=== PATIENT | female | born 2000 | race Caucasian/White ===

== ENCOUNTER 2018-11-29 01:01 | Emergency (ER) | payer OTHER ==
[2018-11-29] MEDS ORDERED: NA CHLORIDE 0.9% 1,000 ML ONE (01:50)
[2018-11-29] MEDS ORDERED: KETOROLAC 30 MG/ML INJ ONE (01:50)
[2018-11-29 03:04] LABS: Absolute Lymphocytes (CBC) 2.4 K/uL (0.7-4.9); Basophils % 0.9 % (0-1.3); Hematocrit 40.5 % (36.0-45.0); Lymphocytes % 22.7 % (15.3-44.8); MPV 11.6 fL (7.6-11.3); RBC Red Blood Cell Count 4.24 M/uL (3.86-4.86)
[2018-11-29 03:23] LABS: Albumin 4.3 g/dL (3.4-5.0); Bilirubin Direct 0.2 mg/dL (0-0.2); Bilirubin Total 0.6 mg/dL (0.2-1.0); Potassium 4.1 mmol/L (3.5-5.1)
[2018-11-29 03:42] LABS: Urine Blood 2+ (NEG); Urine Glucose NEGATIVE (NEG); Urine Protein 1+ (NEG); Urine Specific Gravity 1.015 (1.005-1.030)
--- NOTE | 2018-11-29 03:47 | EDPHYS ---
Physician Documentation [facility] Name: Gloria Stratton Age: 18 yrs Sex: Female : 2000 Arrival Date: 11/29/2018 Time: 01:05 Bed 13 Private MD: SINCERE Physician Ovidio Louie HPI: 11/29 01:46 This 18 yrs old Female presents to ER via Ambulatory with complaints of Back cp Pain. 01:46 The patient presents with pain that is acute, with no known mechanism of injury. The cp symptoms are located in the right mid back and right low back. Onset: The symptoms/episode began/occurred yesterday. The pain radiates to the abdomen. Associated signs and symptoms: Pertinent negatives: chest pain, constipation, dysuria, fever, headache, incontinence, numbness, urinary retention, weakness. The problem was sustained possible UTI. 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 - Social history:: Smoking status: Patient uses tobacco products, vapes. - Ebola Screening: : No symptoms or risks identified at this time. ROS: 01:50 Constitutional: Negative for body aches, chills, fever, poor PO intake. cp 01:50 Eyes: Negative for injury, pain, redness, and discharge. cp 01:50 ENT: Negative for drainage from ear(s), ear pain, sore throat, difficulty swallowing, difficulty handling secretions. 01:50 Cardiovascular: Negative for chest pain, edema, palpitations. 01:50 Respiratory: Negative for cough, shortness of breath, wheezing. 01:50 Abdomen/GI: Positive for abdominal pain, Negative for vomiting, diarrhea, constipation, anorexia, black/tarry stool, rectal bleeding. 01:50 Back: Positive for pain at rest, pain with movement, of the right mid back and right low back, Negative for injury or acute deformity, decreased range of motion. 01:50 : Negative for burning with urination, difficulty urinating, vaginal bleeding, vaginal discharge. 01:50 Skin: Negative for rash. 01:50 Neuro: Negative for altered mental status, headache, weakness. 01:50 All other systems are negative. Exam: 01:55 Constitutional: The patient appears in no acute distress, alert, awake, non-toxic, well cp developed, well nourished. 01:55 Head/Face: Normocephalic, atraumatic. cp 01:55 Eyes: Periorbital structures: appear normal, Conjunctiva: normal, no exudate, no injection, Sclera: no appreciated abnormality, Lids and lashes: appear normal, bilaterally. 01:55 ENT: External ear(s): are unremarkable, Nose: is normal, Mouth: Lips: moist, Oral mucosa: pink and intact, moist, Posterior pharynx: is normal, airway is patent, no erythema, no exudate. 01:55 Chest/axilla: Inspection: normal, Palpation: is normal, no crepitus, no tenderness. 01:55 Cardiovascular: Rate: tachycardic, Rhythm: regular. 01:55 Respiratory: the patient does not display signs of respiratory distress, Respirations: normal, no use of accessory muscles, no retractions, no splinting, no tachypnea, labored breathing, is not present, Breath sounds: are clear throughout, no decreased breath sounds, no stridor, no wheezing. 01:55 Abdomen/GI: Inspection: abdomen appears normal, Bowel sounds: active, all quadrants, Palpation: soft, in all quadrants, mild abdominal tenderness, in the right upper quadrant and right lower quadrant, rebound tenderness, is not appreciated, involuntary guarding, is not appreciated. 01:55 Back: pain, that is moderate, of the right mid back and right low back, ROM is painful, Straight leg raises: of both lower extremities does not illicit pain. 01:55 Neuro: Orientation: to person, place \T\ time. Mentation: is normal, Motor: moves all fours, strength is normal, Sensation: no obvious gross deficits. Vital Signs: 01:09 BP 108 / 96; Pulse 100; Resp 16; Temp 98.7(TE); Pulse Ox 99% on R/A; Weight 61.69 kg ak1 (R); Height 5 ft. 6 in. (167.64 cm) (R); Pain 7/10; 03:15 BP 100 / 71; Pulse 94; Resp 18; Pulse Ox 100% ; Pain 0/10; fu 01:09 Body Mass Index 21.95 (61.69 kg, 167.64 cm) ak1 MDM: 01:43 Patient medically screened. josie 02:00 Differential diagnosis: Cholelithiasis Pyelonephritis spinal injury, Ureterolithiasis cp ovarian cyst, PID, sciatica. 03:45 Data reviewed: vital signs, nurses notes, lab test result(s), radiologic studies, CT cp scan, and as a result, I will discharge patient. 03:45 Counseling: I had a detailed discussion with the patient and/or guardian regarding: the cp historical points, exam findings, and any diagnostic results supporting the discharge/admit diagnosis, lab results, radiology results, to return to the emergency department if symptoms worsen or persist or if there are any questions or concerns that arise at home. Response to treatment: the patient's symptoms have markedly improved after treatment, and as a result, I will discharge patient. 11/29 01:22 Order name: Urine Dipstick--Ancillary (enter results); Complete Time: 14:40 cm6 11/29 01:22 Order name: Urine --Ancillary (enter results); Complete Time: 14:40 cm6 11/29 01:41 Order name: Urine Microscopic Only; Complete Time: 14:40 cp 11/29 14:40 Interpretation: Normal except: UWBC 20-50; URBC 10-20; UBACT 20-50. cp 11/29 01:46 Order name: Basic Metabolic Panel; Complete Time: 03:33 cp 11/29 03:33 Interpretation: Normal except: CL 108; GFR 83. cp 11/29 01:46 Order name: CBC with Diff; Complete Time: 03:05 cp 11/29 03:05 Interpretation: Normal except: MPV 11.6. cp 11/29 01:46 Order name: Creatinine for Radiology; Complete Time: 03:22 cp 11/29 03:23 Interpretation: Reviewed. cp 11/29 01:46 Order name: Hepatic Function; Complete Time: 03:33 cp 11/29 01:46 Order name: Lipase; Complete Time: 03:33 cp 11/29 01:46 Order name: IV Saline Lock; Complete Time: 02:55 cp 11/29 01:46 Order name: CT Stone Protocol 11/29 04:05 Order name: Urine Culture EDWI 11/29 01:46 Order name: Labs collected and sent; Complete Time: 02:55 cp Administered Medications: 02:50 Drug: TORadol - Ketorolac 15 mg Route: IVP; Site: left antecubital; fu 03:37 Follow up: Response: Pain is decreased fu 02:50 Drug: NS 0.9% 1000 ml Route: IV; Rate: 1 bolus; Site: left antecubital; fu 04:04 Drug: Rocephin 1 grams Route: IV; Rate: bolus; Site: left antecubital; fu Disposition: 06:17 Co-signature as Attending Physician, Ovidio Louie MD I agree with the assessment and [facility] plan of care. Disposition: 11/29/18 03:46 Discharged to Home. Impression: Urinary tract infection, site not specified, Low back pain - right lower back. - Condition is Stable. - Discharge Instructions: Back Pain, Adult, Urinary Tract Infection, Adult. - Prescriptions for Ibuprofen 800 mg Oral Tablet - take 1 tablet by ORAL route every 8 hours As needed take with food; 30 tablet. Zofran 4 mg Oral Tablet - take 1 tablet by ORAL route every 12 hours As needed; 20 tablet. Bactrim DS 800- 160 mg Oral Tablet - take 1 tablet by ORAL route every 12 hours for 7 days; 14 tablet. - Medication Reconciliation Form, Thank You Letter, Antibiotic Education, Prescription Opioid Use form. - Follow up: Private Physician; When: 2 - 3 days; Reason: Recheck today's complaints. - Problem is new. - Symptoms have improved. Signatures: Dispatcher [employer] [facility] Ovidio Louie MD MD cha Krenek, Amber RN RN ak1 Ovidio Ro PA PA cp Umadhay, Felix, RN RN fu Corrections: (The following items were deleted from the chart) 04:31 03:46 11/29/2018 03:46 Discharged to Home. Impression: Urinary tract infection, site fu not specified; Low back pain - right lower back. Condition is Stable. Forms are Medication Reconciliation Form, Thank You Letter, Antibiotic Education, Prescription Opioid Use. Follow up: Private Physician; When: 2 - 3 days; Reason: Recheck today's complaints. Problem is new. Symptoms have improved. cp
--- NOTE | 2018-11-29 03:47 | ER ---
Nurse's Notes [facility] Name: Gloria Strattno Age: 18 yrs Sex: Female : 2000 Arrival Date: 11/29/2018 Time: 01:05 Bed 13 Private MD: Diagnosis: Urinary tract infection, site not specified;Low back pain-right lower back Presentation: 11/29 01:10 Presenting complaint: Patient states: right flank pain since 0. pt with UTI s/s X3 ak1 weeks, taking OTC AZO. Transition of care: patient was not received from another setting of care. Onset of symptoms is unknown. Risk Assessment: Do you want to hurt yourself or someone else? Patient reports no desire to harm self or others. Initial Sepsis Screen: Does the patient meet any 2 criteria? No. Patient's initial sepsis screen is negative. Does the patient have a suspected source of infection? No. Patient's initial sepsis screen is negative. Care prior to arrival: None. 01:10 Method Of Arrival: Ambulatory ak1 01:10 Acuity: ALBERT 3 ak1 Triage Assessment: 01:11 General: Appears uncomfortable, Behavior is calm, cooperative. Pain: Complains of pain ak1 in right mid back and right low back. 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 - Social history:: Smoking status: Patient uses tobacco products, vapes. - Ebola Screening: : No symptoms or risks identified at this time. Screenin:28 Abuse screen: Denies threats or abuse. Nutritional screening: No deficits noted. fu Tuberculosis screening: No symptoms or risk factors identified. Fall Risk None identified. Assessment: 01:24 General: Appears in no apparent distress. Behavior is calm, cooperative, appropriate fu for age, Denies fever, feeling ill, fatigue, chills. Pain: Complains of pain in back and right low back and right mid back Pain does not radiate. Pain currently is 7 out of 10 on a pain scale. Pain began 0300 Is intermittent. Neuro: Level of Consciousness is awake, alert, obeys commands, Oriented to person, place, time, situation. Cardiovascular: Denies chest pain. Respiratory: Airway is patent Breath sounds are clear bilaterally. : Reports pressure with urination. EENT:. Musculoskeletal: No signs and/or symptoms reported regarding the musculoskeletal system. 02:00 Reassessment: Patient appears in no apparent distress at this time. No changes from fu previously documented assessment. Patient and/or family updated on plan of care and expected duration. Pain level reassessed. 03:00 Reassessment: Patient appears in no apparent distress at this time. Patient and/or fu family updated on plan of care and expected duration. Pain level reassessed. Patient reports feeling cold and chills, warm blanket provided. 04:10 Reassessment: Patient appears in no apparent distress at this time. No changes from fu previously documented assessment. Patient and/or family updated on plan of care and expected duration. Pain level reassessed. Patient denies pain at this time. Patient states feeling better. Vital Signs: 01:09 BP 108 / 96; Pulse 100; Resp 16; Temp 98.7(TE); Pulse Ox 99% on R/A; Weight 61.69 kg ak1 (R); Height 5 ft. 6 in. (167.64 cm) (R); Pain 7/10; 03:15 BP 100 / 71; Pulse 94; Resp 18; Pulse Ox 100% ; Pain 0/10; fu 01:09 Body Mass Index 21.95 (61.69 kg, 167.64 cm) ak1 ED Course: 01:05 Patient arrived in ED. es 01:09 Arm band placed on Patient placed in an exam room, on a stretcher, Patient notified of ak1 wait time. 01:11 Triage completed. ak1 01:11 Fabien Miarmontes, JOSE is Primary Nurse. fu 01:41 Ovidio Ro PA is PHCP. cp 01:41 Ovidio Louie MD is Attending Physician. cp 02:20 CT Stone Protocol In Process Unspecified. EDMS 02:46 Inserted saline lock: 20 gauge in left antecubital area, using aseptic technique. oe 02:47 Inserted saline lock: 20 gauge in left antecubital area, using aseptic technique. Blood oe collected. 03:17 Patient has correct armband on for positive identification. Placed in gown. Bed in low fu position. Side rails up X 1. 03:17 No provider procedures requiring assistance completed. fu 03:40 warm blanket, provided. fu 04:10 IV discontinued, bleeding controlled, Pressure dressing applied. fu Administered Medications: 02:50 Drug: TORadol - Ketorolac 15 mg Route: IVP; Site: left antecubital; fu 03:37 Follow up: Response: Pain is decreased fu 02:50 Drug: NS 0.9% 1000 ml Route: IV; Rate: 1 bolus; Site: left antecubital; fu 04:04 Drug: Rocephin 1 grams Route: IV; Rate: bolus; Site: left antecubital; fu Outcome: 03:46 Discharge ordered by . cp 04:15 Discharged to home ambulatory. fu 04:15 Condition: improved 04:15 Discharge instructions given to patient, Instructed on discharge instructions, Demonstrated understanding of instructions, Prescriptions given X 3. 04:31 Patient left the ED. fu Signatures: Dispatcher [employer] EDClaudia Delatorre Amber RN RN ak1 Ovidio Ro PA PA Rashad Meyers Felix, JOSE RN fu Corrections: (The following items were deleted from the chart) 03:41 01:19 Fabien Miramontes, JOSE is Primary Nurse. fu fu
[2018-11-29] MEDS ORDERED: CEFTRIAXONE/SWI 1gm 1 GM/10 ML SYR ONE (03:58)
[2018-11-29 04:04] LABS: Urine Bacteria 20-50 /HPF (<20); Urine Culture Reflex Order REFLEXED
[2018-11-29 04:37] VITALS: TEMP 98.7
[2018-11-29 04:38] VITALS: BP 100/71; O2SAT 100
--- NOTE | 2018-11-29 09:50 | RAD REPORT ---
EXAM DESCRIPTION: CT - Stone Protocol - 11/29/2018 2:49 am COMPARISON: None CLINICAL HISTORY: Right lower back pain, right flank pain TECHNIQUE: Multiple helical axial images were obtained through the abdomen and pelvis without intrav enous contrast. Sagittal and coronal reformatted images are reviewed as well. All CT scans at this facility use dose modulation, iterative reconstruction, and/or weight-based dosi ng when appropriate to reduce radiation dose to as low as reasonably achievable. FINDINGS: Lung bases: Unremarkable. Liver: Homogenous attenuation is demonstrated. Gallbladder/biliary: Gallbladder appears unremarkable. No calcified gallstones. No evidence of biliar y ductal dilatation. Pancreas: Unremarkable. Spleen: Unremarkable. Adrenals: Unremarkable. Kidneys and ureters: No evidence of renal or ureteral stones. No hydronephrosis. Bladder: Unremarkable. Pelvic organs: Unremarkable. Bowel: No evidence of bowel obstruction. No bowel wall thickening. Appendix appears unremarkable. Peritoneum: No free air. No significant free fluid. Lymph nodes: Unremarkable. Vasculature: Unremarkable. Soft tissues: Unremarkable. Bones: Unremarkable. IMPRESSION: No evidence for an acute process within the abdomen or pelvis. Electronically signed by: Morales Bolanos MD 11/29/2018 2:41 AM CDT Due to temporary technical issues with the PACS/Fluency reporting system, reports are being signed by the in house radiologist as a courtesy to ensure prompt reporting. The interpreting radiologist is f ully responsible for the content of the report.
== END 2018-11-29 04:31 | disposition home or self-care (01) ==
LOC: ER 01:01
DX: N39.0 Urinary tract infection, site not specified (principal); F17.290 Nicotine dependence, other tobacco product, uncomplicated
CPT/HCPCS: 87088; 85025; 87086; 80048; 36415; 81025; 80076; 83690; 76377; 74176; J0696; J7030; 81003; 81015; 96374; 96375; 99284

== ENCOUNTER 2020-01-19 22:38 | Emergency (ER) | payer OTHER ==
--- OUTSIDE RECORDS SUMMARY | 2020-01-19 22:41 | XMS REPORT | Continuity of Care Document ---
:2000 Author Organization [facility] t Address [address] [place] [address] Care Team Providers Name Role Phone Unavailable Unavailable Unavailable Payers Payer Name Policy Type Policy Number Effective Date Expiration Date S ource Problems Condition Condition Condition Status Onset Resolution Last Treating Co mments Source Name Details Category Date Date Treatment Clinician Date Viral URI Viral URI Problem Active [facility] Allergies, Adverse Reactions, Alerts Allergy Allergy Status Severity Reaction(s) Onset Inactive Treating Comm ents Source Name Type Date Date Clinician No Known DA Active [facility] Medications Ordered Filled Start Stop Current Ordering Indication Dosage Frequency Signature Comments Components Source Medication Medication Date Date Medication? Clinician (SIG) Name Name Sprintec 28 Sprintec 28 Yes Sia not [facility] defined [facility] Procedures This patient has no known procedures. Encounters Start End Encounter Admission Attending Care Care Encounter Source Date/Time Date/Time Type Type Clinicians Facility Department ID 2019-01-27 2019-01-27 [facility] [id number] 15:40:00 15:40:00 t [facility] - [facility] Results Test Description Test Time Test Comments Results Result Sour e Comments PRODUCTS OF 2019-10-11 CONCEPTION 19:13:00 --------RUN DATE: 10/12/19 [facility] PAGE 1 RUN TIME: 1038 Specimen Inquiry RUN USER: INTERFACE --------PATIENT: [facility]AY[facility]AL[facility] #: [id number] AGE/SX: 19/F ROOM: RE10/04/19REG DR: Chuck Valladares MD : [birth year] BED: DIS: STATUS: [facility] TLOC: -------- SPEC #: [id number] RECD: 10/04/19 STATUS: MEME SULLIVAN #: [id number] ROD: 10/04/19- SUBM DR: Chuck Valladares MD ENTERED: 10/06/19-836 SP TYPE: POC[ OTHR DR: ORDERED: LEVEL IV CODES: [id number] - ENDOMETRIUM, NO PROCEDURES: LEVEL IV (Incomplete) TISSUES: ENDOMETRIUM, NOS - POC CLINICAL HISTORY 19 year old, missed (wpd) FINAL DIAGNOSIS Designated "products of conception": - products of conception identified - structures identified (macerated) CPT code(s): 44911 pkg/wpd GROSS DESCRIPTION ANATOMIC SOURCE OF TISSUE (per Requisition): Products of conception The specimen is received in a suction canister, labeled with the patient's name and designated "products of conception". The specimen consists of a 5.5 x 4.5 x 2 cm aggregate of fragmented elliott-pink to brown soft tissues. No parts are grossly identified. Corporate Executive [employer] sections are submitted in A1 and A2. Also received in the same container is a 2 gm, 3.5 x 1.7 x 1 cm portion of fetus. The fetus is macerated. No foot is identified. The specimen is for gross examination only. zev 10/06/19 MICROSCOPIC DESCRIPTION The specimen consists of clusters of immature chorionic villi containing mild trophoblast proliferation that is mainly polar. No central cisterns, intravillous inclusions or villous scalloping are identified. Fragments of decidua and gestational endometrium are also present. pkg/wpd CONTINUED ON NEXT PAGE --------RUN DATE: 10/12/19 [facility] PAGE 2 RUN TIME: 1038 Specimen Inquiry RUN USER: INTERFACE --------SPEC #: [id number] PATIENT: JAYDON MORALES #[id number] (Continued) -------- Signed Art[employer]oby 10/11/191912 -------- END OF REPORT COVID 19 Asymptomatic IH AG 2019-10-03 16:41:00 Test Item Value Reference Range Interpretation Comme nts COVID 19 Asymptomatic IH AG NEGATIVE NEGATIVE This test has been authorized only (test code = COVNONPUIAG) fo r the detection ofproteins from SARS-CoV-2, not for any other viruses orpatho gens. Negative results should be treated as presumptive and confirmed with a molecular assay , if necessary for patientmanageme nt. Negative results do not rule out COVID-19 andshould not be used as the sole basis for treatment orpat ient management decisions, incl uding infection controldecision s. Negative results should be consi dered in thecontext of a patient's recent exposures, history and the presence of clinical signs and sympt oms consistent withCOVID-19. T his test has not been FDA cleare d or approved; the test hasbeen au thorized by FDA under an Emerge ncy Use Authorization(E UA) for use by laboratories ce rtified under the CLIA thatmeet t he requirements to perform moderat e, high or waivedcomplexit y tests. This test is authorized f or use at thePoint of Care (POC), i.e., in patient care settingsop erating under a CLIA Certificate of Waiver, Certificate ofCompliance, o r Certificate of Accreditation. This test is only authorized for the duration of thedeclaration that circumstances exist justifyin g theauthorization of emergency us e of in vitro diagnostic test sfor detection and/or diagnosi s of COVID-19 under Lqqukow405(b)(1 ) of the Act, 21 U.S.C. 360bbb -3(b)(1), unless theauthorizatio n is terminated or revoked sooner. HGB [id number] 14:46:00 Test Item Value Reference Range Interpretation Comments HEMOGLOBIN (test code = HGB) 12.7 g/dL 10.7-13.9 N HEMATOCRIT (test code = HCT) 39.2 % 32.1-42.1 N
[2020-01-19] MEDS ORDERED: METOCLOPRAMIDE 10 MG/2mL INJ ONE (23:20)
[2020-01-19] MEDS ORDERED: DIPHENHYDRAMINE 50 MG/ML VIAL ONE (23:20)
[2020-01-19] MEDS ORDERED: NA CHLORIDE 0.9% 1,000 ML ONE (23:21)
[2020-01-20 00:04] LABS: Urine Blood NEGATIVE (NEG); Urine Glucose NEGATIVE (NEG); Urine Protein NEGATIVE (NEG); Urine Specific Gravity 1.015 (1.005-1.030); Urine pH 7.5 (5.0-7.0)
[2020-01-20 00:15] LABS: Absolute Lymphocytes (CBC) 1.8 K/uL (0.7-4.9); Basophils % 0.7 % (0-1.3); Hematocrit 39.5 % (36.0-45.0); Lymphocytes % 15.1 % (15.3-44.8); MPV 11.6 fL (7.6-11.3); RBC Red Blood Cell Count 4.25 M/uL (3.86-4.86)
[2020-01-20 00:32] LABS: ALT/SGPT 18 U/L (12-78); AST/SGOT 11 U/L (15-37); Albumin 4.1 g/dL (3.4-5.0); Alkaline Phosphatase 56 U/L (45-117); BUN Blood Urea Nitrogen 7 mg/dL (7-18); Bicarbonate 27 mmol/L (21-32); Bilirubin Direct 0.1 mg/dL (0-0.2); Bilirubin Total 0.4 mg/dL (0.2-1.0); Glucose Level 83 mg/dL (74-106); Lipase 81 U/L (73-393); Potassium 3.9 mmol/L (3.5-5.1); Protein, Total 7.7 g/dL (6.4-8.2); Sodium Level 140 mmol/L (136-145)
--- NOTE | 2020-01-20 00:55 | EDPHYS ---
Physician Documentation [facility] Name: Gloria Stratton Age: 19 yrs Sex: Female : 2000 Arrival Date: 01/19/2020 Time: 22:39 Bed 17 Private MD: ED Physician Gianfranco Santiago HPI: 01/18 23:55 This 19 yrs old Female presents to ER via Ambulatory with complaints of jmm Nausea/Vomiting - +preg. 23:55 The patient presents to the emergency department with nausea, vomiting. Onset: The jmm symptoms/episode began/occurred gradually, 1 week(s) ago. Possible causes: . The symptoms are aggravated by nothing. The symptoms are alleviated by nothing. Associated signs and symptoms: Pertinent positives: vomiting, Pertinent negatives: vaginal discharge. Patient states she is about 6 weeks . Does have a history of hyperemesis. Prescribed medication is providing no relief. Unsure of the name of medication. . 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 23:55 Abdomen/GI: Positive for vomiting. 23:55 All other systems are negative. Exam: 23:55 Constitutional: This is a well developed, well nourished patient who is awake, alert, jmm and in no acute distress. Head/Face: atraumatic. Eyes: EOMI, no conjunctival erythema appreciated ENT: Moist Mucus Membranes Neck: Trachea midline, Supple Chest/axilla: Normal chest wall appearance and motion. Cardiovascular: Regular rate and rhythm. No edema appreciated Respiratory: Normal respirations, no respiratory distress appreciated Abdomen/GI: Non distended, soft Back: Normal ROM Skin: General appearance color normal MS/ Extremity: Moves all extremities, no obvious deformities appreciated, no edema noted to the lower extremities Neuro: Awake and alert, normal gait Psych: Behavior is normal, Mood is normal, Patient is cooperative and pleasant Vital Signs: 22:59 BP 107 / 56; Pulse 80; Resp 18; Temp 98.4; Pulse Ox 100% on R/A; Weight 72.12 kg; dh4 Height 5 ft. 7 in. (170.18 cm); 22:59 Body Mass Index 24.90 (72.12 kg, 170.18 cm) 4 MDM: 23:01 Patient medically screened. [facility] 01/19 00:53 Data reviewed: vital signs, nurses notes. Counseling: I had a detailed discussion with [facility] the patient and/or guardian regarding: the historical points, exam findings, and any diagnostic results supporting the discharge/admit diagnosis, lab results, the need for outpatient follow up, to return to the emergency department if symptoms worsen or persist or if there are any questions or concerns that arise at home. ED course: Patient is alert and non toxic in appearance in the ED. Patient is advised to follow up with ob for further evaluation. Patient understood and agrees with the plan of care. . 01/18 23:02 Order name: Basic Metabolic Panel; Complete Time: 00:34 [facility] 01/18 23:02 Order name: CBC with Diff; Complete Time: 00:34 [facility] 01/18 23:02 Order name: Hepatic Function; Complete Time: 00:34 [facility] 01/18 23:02 Order name: Lipase; Complete Time: 00:34 [facility] 01/18 23:11 Order name: Urine --Ancillary (enter results); Complete Time: 00:14 [facility] 01/18 23:12 Order name: Urine Dipstick--Ancillary (enter results); Complete Time: 00:14 [facility] 01/18 23:02 Order name: IV Saline Lock; Complete Time: 23:05 [facility] 01/18 23:02 Order name: Labs collected and sent; Complete Time: 23:05 [facility] 01/18 23:02 Order name: Urine Dipstick-Ancillary (obtain specimen); Complete Time: 23:04 [facility] 01/18 23:02 Order name: Urine Test (obtain specimen); Complete Time: 23:04 [facility] Administered Medications: 00:15 Drug: Reglan 10 mg Route: IVP; Site: right antecubital; ea 00:50 Follow up: Response: No adverse reaction sg 00:15 Drug: NS 0.9% 1000 ml Route: IV; Rate: 1 bolus; Site: right antecubital; ea 01:07 Follow up: Response: No adverse reaction; IV Status: Completed infusion; IV Intake: sg 990ml 00:15 Drug: diphenhydrAMINE 12.5 mg Route: IVP; Site: right antecubital; ea 00:50 Follow up: Response: No adverse reaction sg Disposition: 21:49 Co-signature as Attending Physician, Gianfranco Santiago MD I agree with the assessment and tw4 plan of care. Disposition: 01/20/20 00:54 Discharged to Home. Impression: Vomiting. - Condition is Stable. - Discharge Instructions: Eating Plan for Hyperemesis Gravidarum. - Prescriptions for Diclegis 10- 10 mg Oral tablet,delayed release (DR/EC) - take 2 tablet by ORAL route once daily; 20 tablet. Zofran ODT 4 mg Oral tablet,disintegrating - place 1 tablet by TRANSLINGUAL route every 4-6 hours; 20 tablet. Reglan 10 mg Oral Tablet - take 1 tablet by ORAL route every 6 hours take 30 minutes before meals and at bedtime; 20 tablet. - Work release form, Medication Reconciliation Form, Thank You Letter, Antibiotic Education, Prescription Opioid Use form. - Follow up: Private Physician; When: 2 - 3 days; Reason: Recheck today's complaints, Continuance of care, Re-evaluation by your physician. Signatures: Dispatcher [employer] EDMS Elvie Batista RN RN dm5 Nitin Michelle PA PA jmm Antunez, Elena, RN RN ea Wadley, Terrence, MD MD tw4 Darin Laureano tt3 Piyush Funk RN sg Corrections: (The following items were deleted from the chart) 01:34 00:54 01/20/2020 00:54 Discharged to Home. Impression: Vomiting. Condition is Stable. tt3 Forms are Medication Reconciliation Form, Thank You Letter, Antibiotic Education, Prescription Opioid Use. Follow up: Private Physician; When: 2 - 3 days; Reason: Recheck today's complaints, Continuance of care, Re-evaluation by your physician. franny
--- NOTE | 2020-01-20 00:55 | ER ---
Nurse's Notes [facility] Name: Gloria Stratton Age: 19 yrs Sex: Female : 2000 Arrival Date: 01/19/2020 Time: 22:39 Bed 17 Private MD: Diagnosis: Vomiting Presentation: 01/18 22:55 Chief complaint: Patient states: can't hold anything down. I have had a miscarriage dm5 before and I think it was due to malnutrition. pt reports abdominal pain/cramping 04/17 denies vaginal bleeding. Coronavirus screen: Client denies travel out of the [place] in the last 14 days. nausea, vomiting. Client presents with at least one sign or symptom that may indicate coronavirus-19. Standard/surgical mask placed on the client. Ebola Screen: Patient negative for fever greater than or equal to 101.5 degrees Fahrenheit, and additional compatible Ebola Virus Disease symptoms Patient denies exposure to infectious person. Patient denies travel to an Ebola-affected area in the 21 days before illness onset. No symptoms or risks identified at this time. Initial Sepsis Screen: Does the patient meet any 2 criteria? No. Patient's initial sepsis screen is negative. Does the patient have a suspected source of infection? No. Patient's initial sepsis screen is negative. Risk Assessment: Do you want to hurt yourself or someone else? Patient reports no desire to harm self or others. Onset of symptoms was January 19, 2020. 22:55 Method Of Arrival: Ambulatory dm5 22:55 Acuity: ALBERT 3 dm5 Triage Assessment: 22:59 General: Appears in no apparent distress. uncomfortable, Behavior is cooperative, dm5 anxious. Pain: Complains of pain in suprapubic area Pain currently is 3 out of 10 on a pain scale. Neuro: Level of Consciousness is awake, alert, obeys commands, Oriented to person, place, time, situation. Respiratory: Airway is patent Respiratory effort is even, unlabored, relaxed. GI: Reports lower abdominal pain. Derm: Skin is pale. 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 Denies injuries from another. Nutritional sg screening: No deficits noted. Tuberculosis screening: No symptoms or risk factors identified. Never had TB. Fall Risk None identified. Assessment: 23:00 General: Appears in no apparent distress. slender, well groomed, well developed, well sg nourished, Behavior is calm, cooperative, appropriate for age. Pain: Denies pain. Neuro: Level of Consciousness is awake, alert, obeys commands, Oriented to person, place, time, Moves all extremities. Full function Speech is normal, Facial symmetry appears normal. Cardiovascular: Capillary refill is brisk in bilateral fingers Patient's skin is warm and dry. Chest pain is denied. Respiratory: Airway is patent Respiratory effort is even, unlabored, Respiratory pattern is regular, symmetrical. GI: Abdomen is round non-distended, Reports nausea, vomiting. : No signs and/or symptoms were reported regarding the genitourinary system. EENT: No signs and/or symptoms were reported regarding the EENT system. Derm: Skin is pink, warm \T\ dry. Musculoskeletal: Circulation, motion, and sensation intact. Range of motion: intact in all extremities. Vital Signs: 22:59 BP 107 / 56; Pulse 80; Resp 18; Temp 98.4; Pulse Ox 100% on R/A; Weight 72.12 kg; dh4 Height 5 ft. 7 in. (170.18 cm); 22:59 Body Mass Index 24.90 (72.12 kg, 170.18 cm) 4 ED Course: 22:39 Patient arrived in ED. am2 22:51 Piyush Funk, JOSE is Primary Nurse. sg 22:52 Nitin Michelle PA is PHCP. [facility] 22:52 Gianfranco Santiago MD is Attending Physician. [facility] 22:58 Triage completed. dm5 22:59 Arm band placed on Patient placed in an exam room. dm5 23:15 Missed attempt(s): 22 gauge in right antecubital area. missed attempt by Joon. sg Bleeding controlled, band aid applied, catheter tip intact. 23:48 Missed attempt(s): 22 gauge in left antecubital area. Bleeding controlled, band aid sg applied, catheter tip intact. Missed attempt(s): 24 gauge in left hand. Bleeding controlled, band aid applied, catheter tip intact. Missed attempt(s):. 12/12 00:24 Inserted saline lock: 22 gauge in right antecubital area, using aseptic technique. ea 01:14 Patient has correct armband on for positive identification. Bed in low position. Call sg light in reach. Side rails up X2. Pulse ox on. NIBP on. 01:14 No provider procedures requiring assistance completed. IV discontinued, intact, sg bleeding controlled, No redness/swelling at site. Pressure dressing applied. Administered Medications: 00:15 Drug: Reglan 10 mg Route: IVP; Site: right antecubital; ea 00:50 Follow up: Response: No adverse reaction sg 00:15 Drug: NS 0.9% 1000 ml Route: IV; Rate: 1 bolus; Site: right antecubital; ea 01:07 Follow up: Response: No adverse reaction; IV Status: Completed infusion; IV Intake: sg 990ml 00:15 Drug: diphenhydrAMINE 12.5 mg Route: IVP; Site: right antecubital; ea 00:50 Follow up: Response: No adverse reaction sg Intake: 01:07 IV: 990ml; Total: 990ml. Outcome: 00:54 Discharge ordered by MD. blanton 01:13 Discharged to sg 01:30 Discharged to home ambulatory. sg 01:30 Condition: good 01:30 Instructed on discharge instructions, follow up and referral plans. safety practices, Demonstrated understanding of instructions, follow-up care, medications, Prescriptions given X 3. 01:34 Patient left the ED. tt3 Signatures: Elvie Batista, RN RN dmPiyush Ruiz RN RN Nitin Matt PA PA jmm Moreno, Amanda am2 Antunez, Elena RN Joon Greenfield ea, Tyler tt3
[2020-01-24 11:55] VITALS: BP 107/56; TEMP 98.4; O2SAT 100
== END 2020-01-20 01:34 | disposition home or self-care (01) ==
LOC: ER 22:38
DX: O21.9 Vomiting of pregnancy, unspecified (principal); Z3A.01 Less than 8 weeks gestation of pregnancy
CPT/HCPCS: 96361; 85025; 80048; 36415; 81025; 80076; 81003; 83690; 96375; 96374; 99284; J2765; J1200; J7030

== ENCOUNTER 2020-04-02 16:26 | Emergency (ER) | payer OTHER ==
--- OUTSIDE RECORDS SUMMARY | 2020-04-02 16:30 | XMS REPORT | Continuity of Care Document ---
:2000 Author Organization [facility] t Address [address] [place] [address] Care Team Providers Name Role Phone Unavailable Unavailable Unavailable Payers Payer Name Policy Type Policy Number Effective Date Expiration Date S ource Problems Condition Condition Condition Status Onset Resolution Last Treating Co mments Source Name Details Category Date Date Treatment Clinician Date Viral URI Viral URI Problem Active [facility] Allergies, Adverse Reactions, Alerts Allergy Allergy Status Severity Reaction(s) Onset Inactive Treating Comm ents Source Name Type Date Date Clinician No Known DA Active U 2020-1 [facility] [place] No Known DA Active U 2020-1 [facility] No Known DA Active U 2020-0 [facility] Medications Ordered Filled Start Stop Current Ordering Indication Dosage Frequency Signature Comments Components Source Medication Medication Date Date Medication? Clinician (SIG) Name Name Sprintec 28 Sprintec 28 Yes Sia not [facility] Procedures This patient has no known procedures. Encounters Start End Encounter Admission Attending Care Care Encounter Source Date/Time Date/Time Type Type Clinicians Facility Department ID 2019-01-27 2019-01-27 [id number] [facility] 15[facility] 15:40:00 [facility] s - [facility] Medicine Medicine Outpati ent Clinics Results Test Description Test Time Test Comments Results Result Sourc e Comments - US LTD 2020-03-21 18:38:00 [facility] : 2000 Sex: F Patient Name: JAYDON MORALES Unit No: [id number] EXAMS: CPT CODE: [id number] [place] LTD 78308 Limited obstetrical ultrasound dated 03/21/2020. HISTORY: 16 weeks . Pelvic pain. Vaginal bleeding. A limited transabdominal obstetrical ultrasound was performed and reveals the presence of a dichorionic diamnionic twin intrauterine . Twin A is in cephalic position with a heart rate of 144 bpm and twin B is in transverse position with a heart rate of 140 bpm. Twin A placenta is positioned posteriorly and twin B placenta is positioned anteriorly. Both placentas demonstrate grade 1 to grade 2 echotexture. There is no evidence of placenta previa. Amniotic fluid volume appears within normal limits. The cervix is closed with a measured cervical length of 3.5 cm. The right ovary measures 2.8 x 1.7 x 2.7 cm and the left ovary measures 2.2 x 1.4 x 2.2 cm. The ovaries maintain normal echotexture. No adnexal masses or pelvic fluid collections are identified. IMPRESSION: 1. Living dichorionic diamniotic twin . SL: 131 at 1838 Reported and signed by: Samir Jade MD CC: Carlita Rapp MD; Amy Torres MD Technologist: Lida Valladares RDMS, RVT Probe: Trnscrbd D/ (1838) NateDMM Orig Print D/T: S: 03/21/2020 (1841) [facility] NAME: JAYDON MORALES Radiology Department PHYS: REJIEileenCarlita Kirkland MD [address] : 2000 AGE: 19 SEX: [place] [address] LOC: CyrusERS PHONE #: [phone] EXAM DATE: 03/21/2020 STATUS: REG ER FAX #: [phone] RAD NO: Page 1 Signed Report Patient Name: JAYDON MORALES Unit No: [id number] EXAMS: CPT CODE: [id number] LTD 23029 <Continued> [facility] NAME: JAYDON MORALES Radiology Department PHYS: Carlita Marte MD [address] : 2000 AGE: 19 SEX: F [place] [address] LOC: CyrusERS PHONE #: [phone] EXAM DATE: 03/21/2020 STATUS: REG ER FAX #: [phone] RAD NO: Page 2 Signed Report HCG SERUM 2020-03-21 18:32:00 Test Item Value Reference Range Interpretation Comme nts HCG SERUM (test code = 99470 INTER PRETATION:VALUES BETWEEN 15-20 HCG) milliInternatio nal units/mL NEED TO BERETESTED WITHIN 48 HOURS . All units for these ranges are in milliInterna tionalunits/mL0-1 WK AFTER CONCEPTION 0-50 1-2 WKS AFTER CONCEPTION 40-3002-3 WKS AFTER CONCEPTION 100-1,0003-4 WKS AFTER CONCEPTION 500-6,0001-2 MONTHS AFTER CONCEPTION 5,000-200,0002-3 MONTHS AFTER CONCEPTION 10,000-100,0002ND TRIMESTER 3,0 00-50,0003RD TRIMESTER 1,000-50 ,000 SPECIMENS WITH AN HCG LEVEL FROM 0-6 milliI nternationalunits/mL SHOULD BE CONSIDERED NEGA TIVE CHEMISTRY 7 [id number] 18:18:00 Test Item Value Reference Range Interpretation Comments SODIUM (test code = NA) 139 mEq/L 135-145 N POTASSIUM (test code = K) 3.7 mEq/L 3.5-5.0 N CHLORIDE (test code = CL) 104 mEq/L 100-115 N CARBON DIOXIDE (test code = CO2) 24 mEq/L 22-31 N ANION GAP (test code = GAP) 14.70 10-20 N GLUCOSE (test code = GLU) 93 mg/dL 65-110 N BLOOD UREA NITROGEN (test code = 8 mg/dL 7-18 N BUN) GLOMERULAR FILTRATION RATE (test 126 ml/min >60 N code = GFR) CREATININE (test code = CREAT) 0.6 mg/dL 0.5-1.0 N CALCIUM (test code = CA) 8.6 mg/dL 8.4-10.2 N CHEMISTRY 7 [id number] 18:17:00 Test Item Value Reference Range Interpretation Comments SODIUM (test code = NA) 139 mEq/L 135-145 N POTASSIUM (test code = K) 3.7 mEq/L 3.5-5.0 N CHLORIDE (test code = CL) 104 mEq/L 100-115 N CARBON DIOXIDE (test code = CO2) 24 mEq/L 22-31 N ANION GAP (test code = GAP) 10-20 GLUCOSE (test code = GLU) 93 mg/dL 65-110 N BLOOD UREA NITROGEN (test code = 8 mg/dL 7-18 N BUN) GLOMERULAR FILTRATION RATE (test 126 ml/min >60 N code = GFR) CREATININE (test code = CREAT) 0.6 mg/dL 0.5-1.0 N CALCIUM (test code = CA) 8.6 mg/dL 8.4-10.2 N CHEMISTRY 7 [id number] 18:07:00 Test Item Value Reference Range Interpretation Comments CARBON DIOXIDE (test code = CO2) 24 mEq/L 22-31 N ANION GAP (test code = GAP) 10-20 GLUCOSE (test code = GLU) 93 mg/dL 65-110 N BLOOD UREA NITROGEN (test code = 8 mg/dL 7-18 N BUN) GLOMERULAR FILTRATION RATE (test 126 ml/min >60 N code = GFR) CREATININE (test code = CREAT) 0.6 mg/dL 0.5-1.0 N CALCIUM (test code = CA) 8.6 mg/dL 8.4-10.2 N CBC W/AUTO [id number] 17:54:00 Test Item Value Reference Range Interpretation Comments WHITE BLOOD CELL (test code = WBC) 13.7 K/mm3 6.5-12.3 H RED BLOOD CELL (test code = RBC) 3.41 M/mm3 3.51-4.69 L HEMOGLOBIN (test code = HGB) 10.8 g/dL 10.1-13.8 N HEMATOCRIT (test code = HCT) 33.7 % 32.5-41.8 N MEAN CELL VOLUME (test code = MCV) 98.8 fL 84.6-96.6 H MEAN CELL HGB (test code = MCH) 31.7 pg 27.3-33.9 N MEAN CELL HGB CONCETRATION (test 32.0 gm/dL 32.0-34.2 N code = MCHC) RED CELL DISTRIBUTION WIDTH (test 13.5 % 12.2-16.3 N code = RDW) PLATELET COUNT (test code = PLT) 193 K/mm3 134-363 N MEAN PLATELET VOLUME (test code = 12.4 fL 9.2-12.7 N MPV) NEUTROPHIL % (test code = NT%) 78.2 % 57.9-77.3 H LYMPHOCYTE % (test code = LY%) 12.5 % 14.5-29.7 L MONOCYTE % (test code = MO%) 7.0 % 3.6-10.2 N EOSINOPHIL % (test code = EO%) 0.8 % 0.0-3.0 N BASOPHIL % (test code = BA%) 0.3 % 0.1-0.9 N NEUTROPHIL # (test code = NT#) 10.7 K/mm3 LYMPHOCYTE # (test code = LY#) 1.7 K/mm3 MONOCYTE # (test code = MO#) 1.0 K/mm3 EOSINOPHIL # (test code = EO#) 0.11 K/mm3 BASOPHIL # (test code = BA#) 0.0 K/mm3 RBC MORPHOLOGY REQUIRED (test code NORMAL NORMAL = RBCM) PLATELET MORPHOLOGY REQUIRED (test NORMAL NORMAL code = PLTMR) UA RFLX MICR CULT IF [id number] 17:51:00 Test Item Value Reference Range Interpretation Comments UA COLOR (test code = COLU) YELLOW YELLOW UA APPEARANCE (test code = Slightly-Cloudy CLEAR APPU) UA GLUCOSE DIPSTICK (test NEGATIVE NEG code = DGLUU) UA BILIRUBIN DIPSTICK (test NEGATIVE NEG code = BILU) UA KETONE DIPSTICK (test code NEGATIVE NEG = KETU) UA SPECIFIC GRAVITY (test 1.010 1.001-1.035 N code = SGU) UA BLOOD DIPSTICK (test code NEG NEG = LEIA) UA PH DIPSTICK (test code = 7.0 5-9 ROWENA) UA PROTEIN DIPSTICK (test NEGATIVE NEG code = PROU) UA UROBILINIOGEN DIPSTICK NEGATIVE mg/dL NEG (test code = URO) UA NITRITE DIPSTICK (test NEG NEG code = EDDIE) UA LEUKOCYTE ESTERASE 3+ NEG A DIPSTICK (test code = LEUU) UA WBC (test code = WBCU) 3-5 #/hpf NONE SEEN A UA RBC (test code = RBCU) 3-5 #/hpf NONE SEEN A UA EPITHELIAL CELLS (test RARE #/HPF RARE-FEW code = EPIU) UA BACTERIA (test code = FEW /HPF RARE-FEW BACU) UA MUCUS (test code = MUCU) RARE NONE SEEN Indication for culture: Suprapubic PainSpecimen Description: CLEAN CATCH CHEMISTRY 7 [id number] 20:45:00 Test Item Value Reference Range Interpretation Comments SODIUM (test code = NA) 135 mEq/L 135-145 N POTASSIUM (test code = K) 3.9 mEq/L 3.5-5.0 N CHLORIDE (test code = CL) 101 mEq/L 100-115 N CARBON DIOXIDE (test code = CO2) 25 mEq/L 22-31 N ANION GAP (test code = GAP) 12.50 10-20 N GLUCOSE (test code = GLU) 85 mg/dL 65-110 N BLOOD UREA NITROGEN (test code = 9 mg/dL 7-18 N BUN) GLOMERULAR FILTRATION RATE (test 106 ml/min >60 N code = GFR) CREATININE (test code = CREAT) 0.7 mg/dL 0.5-1.0 N CALCIUM (test code = CA) 9.4 mg/dL 8.4-10.2 N CBC W/AUTO [id number] 20:31:00 Test Item Value Reference Range Interpretation Comments WHITE BLOOD CELL (test code = WBC) 12.0 K/mm3 6.6-12.1 N RED BLOOD CELL (test code = RBC) 4.09 M/mm3 3.45-5.01 N HEMOGLOBIN (test code = HGB) 13.1 g/dL 10.7-13.9 N HEMATOCRIT (test code = HCT) 39.2 % 32.1-42.1 N MEAN CELL VOLUME (test code = MCV) 96 fL 84.1-94.8 H MEAN CELL HGB (test code = MCH) 32.0 pg 27-35 N MEAN CELL HGB CONCETRATION (test 33.4 gm/dL 32.2-34.1 N code = MCHC) RED CELL DISTRIBUTION WIDTH (test 11.9 % 12.4-16.5 L code = RDW) PLATELET COUNT (test code = PLT) 157 K/mm3 133-385 N MEAN PLATELET VOLUME (test code = 13.4 fl 9.1-12.7 H MPV) NEUTROPHIL % (test code = NT%) 79.3 % 56.5-79.4 N LYMPHOCYTE % (test code = LY%) 13.6 % 14.3-34.3 L MONOCYTE % (test code = MO%) 5.7 % 5.1-10.4 N EOSINOPHIL % (test code = EO%) 0.4 % 0.1-3.0 N BASOPHIL % (test code = BA%) 0.5 % 0.1-1.0 N NEUTROPHIL # (test code = NT#) 9.5 K/mm3 LYMPHOCYTE # (test code = LY#) 1.6 K/mm3 MONOCYTE # (test code = MO#) 0.7 K/mm3 EOSINOPHIL # (test code = EO#) 0.05 K/mm3 BASOPHIL # (test code = BA#) 0.1 K/mm3 RBC MORPHOLOGY REQUIRED (test code NORMAL NORMAL = RBCM) PLATELET MORPHOLOGY REQUIRED (test NORMAL NORMAL code = PLTMR) UA RFLX MICR CULT IF [id number] 20:06:00 Test Item Value Reference Range Interpretation Comments UA COLOR (test code = COLU) YELLOW YELLOW UA APPEARANCE (test code = APPU) HAZY CLEAR UA GLUCOSE DIPSTICK (test code = NEGATIVE NEGATIVE DGLUU) UA BILIRUBIN DIPSTICK (test code = NEGATIVE NEGATIVE BILU) UA KETONE DIPSTICK (test code = NEGATIVE NEGATIVE KETU) UA SPECIFIC GRAVITY (test code = 1.015 1.001-1.035 N SGU) UA BLOOD DIPSTICK (test code = NEG NEGATIVE LEIA) UA PH DIPSTICK (test code = ROWENA) 7.5 5-9 UA PROTEIN DIPSTICK (test code = NEGATIVE NEGATIVE PROU) UA UROBILINIOGEN DIPSTICK (test 0.2 EU/dL <=1.0 code = URO) UA NITRITE DIPSTICK (test code = NEGATIVE NEGATIVE EDDIE) UA LEUKOCYTE ESTERASE DIPSTICK NEG NEGATIVE (test code = LEUU) UA WBC (test code = WBCU) 0-2 #/hpf NONE SEEN UA RBC (test code = RBCU) 0-2 #/hpf NONE SEEN UA EPITHELIAL CELLS (test code = FEW #/hpf NONE SEEN EPIU) UA BACTERIA (test code = BACU) FEW #/hpf NONE SEEN A UA AMORPHOUS SEDIMENT (test code = FULL FIELD NONE SEEN AMORU) Indication for culture: Dysuria/FrequencySpecimen Description: CLEAN CATCH CHEMISTRY 7 [id number] 17:18:00 Test Item Value Reference Range Interpretation Comments SODIUM (test code = NA) 136 mEq/L 135-145 N POTASSIUM (test code = K) 3.8 mEq/L 3.5-5.0 N CHLORIDE (test code = CL) 101 mEq/L 100-115 N CARBON DIOXIDE (test code = CO2) 24 mEq/L 22-31 N ANION GAP (test code = GAP) 15.10 10-20 N GLUCOSE (test code = GLU) 86 mg/dL 65-110 N BLOOD UREA NITROGEN (test code = 9 mg/dL 7-18 N BUN) GLOMERULAR FILTRATION RATE (test 106 ml/min >60 N code = GFR) CREATININE (test code = CREAT) 0.7 mg/dL 0.5-1.0 N CALCIUM (test code = CA) 9.3 mg/dL 8.4-10.2 N CBC W/AUTO [id number] 16:55:00 Test Item Value Reference Range Interpretation Comments WHITE BLOOD CELL (test code = WBC) 14.2 K/mm3 6.6-12.1 H RED BLOOD CELL (test code = RBC) 3.98 M/mm3 3.45-5.01 N HEMOGLOBIN (test code = HGB) 12.6 g/dL 10.7-13.9 N HEMATOCRIT (test code = HCT) 37.9 % 32.1-42.1 N MEAN CELL VOLUME (test code = MCV) 95 fL 84.1-94.8 H MEAN CELL HGB (test code = MCH) 31.7 pg 27-35 N MEAN CELL HGB CONCETRATION (test 33.2 gm/dL 32.2-34.1 N code = MCHC) RED CELL DISTRIBUTION WIDTH (test 11.8 % 12.4-16.5 L code = RDW) PLATELET COUNT (test code = PLT) 174 K/mm3 133-385 N IMMATURE PLATELET FRACTION (test 13.9 % 0.0-10.8 H code = IPF) MEAN PLATELET VOLUME (test code = 13.0 fl 9.1-12.7 H MPV) NEUTROPHIL % (test code = NT%) 82.5 % 56.5-79.4 H LYMPHOCYTE % (test code = LY%) 11.9 % 14.3-34.3 L MONOCYTE % (test code = MO%) 4.7 % 5.1-10.4 L EOSINOPHIL % (test code = EO%) 0.1 % 0.1-3.0 N BASOPHIL % (test code = BA%) 0.4 % 0.1-1.0 N NEUTROPHIL # (test code = NT#) 11.7 K/mm3 LYMPHOCYTE # (test code = LY#) 1.7 K/mm3 MONOCYTE # (test code = MO#) 0.7 K/mm3 EOSINOPHIL # (test code = EO#) 0.02 K/mm3 BASOPHIL # (test code = BA#) 0.1 K/mm3 RBC MORPHOLOGY REQUIRED (test code NORMAL NORMAL = RBCM) PLATELET MORPHOLOGY REQUIRED (test NORMAL NORMAL code = PLTMR) PRODUCTS OF [id number] 19:13:00 RUN DATE: 10/12/19 [facility] PAGE 1 RUN TIME: 1038 Specimen Inquiry RUN USER: INTERFACE PATIENT: JAYDON MORALES LOC: GUI U #: [id number] AGE/SX: ROOM: RE10/04/19REG DR: Chuck Valladares MD : 89 BED: DIS: STATUS: [facility] TLOC: SPEC #: [id number] RECD: 10/04/19 STATUS: MEME SULLIVAN #: [id number] ROD: 10/04/19- [facility] DR: Chuck Valladares MD ENTERED: 10/06/19-836 SP TYPE: POC[ OTHR DR: ORDERED: LEVEL IV CODES: [id number] - ENDOMETRIUM, NO PROCEDURES: LEVEL IV (Incomplete) TISSUES: ENDOMETRIUM, NOS - POC CLINICAL HISTORY 19 year old, missed (wpd) FINAL DIAGNOSIS Designated "products of conception": - products of conception identified - structures identified (macerated) CPT code(s): 70042 pkg/wpd GROSS DESCRIPTION ANATOMIC SOURCE OF TISSUE (per Requisition): Products of conception The specimen is received in a suction canister, labeled with the patient's name and designated "products of conception". The specimen consists of a 5.5 x 4.5 x 2 cm aggregate of fragmented elliott-pink to brown soft tissues. No parts are grossly identified. Garment Finisher sections are submitted inA1 and A2. Also received in the same container is a 2 gm, 3.5 x 1.7 x 1 cm portion of fetus. The fetus is macerated. No foot is identified. The specimen is for gross examination only. kylah/daren 10/06/19 MICROSCOPIC DESCRIPTION The specimen consists of clusters of immature chorionic villi containing mild trophoblast proliferation that is mainly polar. No central cisterns, intravillous inclusions or villous scalloping are identified. Fragments of decidua and gestational endometrium are also present. pkg/wpd CONTINUED ON NEXT PAGE --RUN DATE: 10/12/19 [facility] PAGE 2 RUN TIME: 1038 Specimen Inquiry RUN USER: INTERFACE SPEC #: [id number] PATIENT: JAYDON MORALES #[id number] (C ontinlurdes) Signed Coby Cordova 10/11/191912 END OF REPORT COVID 19 Asymptomatic IH AG 2019-10-03 16:41:00 Test Item Value Reference Range Interpretation Comments COVID 19 NEGATIVE NEGATIVE This test has b een Asymptomatic IH AG authorize d only for the (test code = detection ofpro teins from COVNONPUIAG) SARS-CoV-2, not for any other viruses orpathogens. N egative results should be treated as presumptive andconfirmed wi th a molecular assay , if necessary for patientmanageme nt. Negative result s do not rule out COVID- 19 andshould not b e used as the sole basis for treatment orpat ient management deci sions, including infec tion controldecision s. Negative result s should be considered i n thecontext of a patient's recent exposure s, history and thepresence of clinical signs and symptoms consis tent withCOVID-19. T his test has not been FD A cleared or approved; th e test hasbeen authori antonio by FDA under an Emerge ncy Use Authorization(E UA) for use by laborato ronan certified under the CLIA thatmeet the re quirements to perform mode rate, high or waivedcomple xity tests. This kam t is authorized for use at thePoint of Car e (POC), i.e., in patien t care settingsoperati ng under a CLIA Certificat e of Waiver, Certifi beniot ofCompliance, o r Certificate of Accreditation. This test is only authori zed for the duration of thedeclaration that circumstances e xist justifying theauthorizatio n of emergency use o f in vitro diagnostic test sfor detection and/o r diagnosis of CO VID-19 under Wuamuzx86 4(b)(1) of the Act, 21 U.S .C. 360bbb-3(b)(1), unless theauthorizatio n is terminated or r evoked sooner. HGB [id number] 14:46:00 Test Item Value Reference Range Interpretation Comments HEMOGLOBIN (test code = HGB) 12.7 g/dL 10.7-13.9 N HEMATOCRIT (test code = HCT) 39.2 % 32.1-42.1 N
[2020-04-02] MEDS ORDERED: NA CHLORIDE 0.9% 1,000 ML ONE (17:19)
[2020-04-02] MEDS ORDERED: CEFTRIAXONE/SWI 1gm 1 GM/10 ML SYR ONE (17:19)
[2020-04-02 17:37] LABS: Urine Blood NEGATIVE (NEG); Urine Glucose NEGATIVE (NEG); Urine Protein NEGATIVE (NEG); Urine Specific Gravity 1.025 (1.005-1.030); Urine pH 7.5 (5.0-7.0)
[2020-04-02 17:42] LABS: Absolute Lymphocytes (CBC) 1.6 K/uL (0.7-4.9); Basophils % 0.4 % (0-1.3); Hematocrit 30.6 % (36.0-45.0); Lymphocytes % 13.5 % (15.3-44.8); MPV 10.8 fL (7.6-11.3); RBC Red Blood Cell Count 3.26 M/uL (3.86-4.86)
[2020-04-02 18:13] LABS: BUN Blood Urea Nitrogen 8 mg/dL (7-18); Bicarbonate 22 mmol/L (21-32); Glucose Level 77 mg/dL (74-106); HCG, Quantitative 30375 mIU/mL (1-3); Potassium 3.7 mmol/L (3.5-5.1); Sodium Level 140 mmol/L (136-145)
--- NOTE | 2020-04-02 18:13 | RAD REPORT ---
EXAM DESCRIPTION: US - OB Limited - 04/02/2020 5:57 pm CLINICAL HISTORY: ABD CRAMPING, COMPARISON: No comparisons FINDINGS: Limited OB ultrasound study was performed. Twin gestation is identified. Anterior and post erior placenta seen. Membranes are identified. Characteristics are consistent with diamniotic, dichor ionic twin gestation. No placental abruption or marginal hematoma. Amniotic fluid volume is normal. anatomy is grossly normal. Both twins measures 17 weeks 4 days. Calculated ELVIN is 09/06/2020. Cervix is long and closed. Amniotic fluid volume is normal for each twin. IMPRESSION: Diamniotic, dichorionic twin gestation with both twins measuring 17 weeks 4 days. Bilateral twin normal heart rates noted. No gross anatomic abnormalities. Placenta tissue is both anterior and posterior in location with no abruption, marginal hematoma or douglass spicious finding. Amniotic fluid volume normal.
--- NOTE | 2020-04-02 19:08 | ER ---
Nurse's Notes [facility] [place] Name: Gloria Stratton Age: 19 yrs Sex: Female : 2000 Arrival Date: 04/02/2020 Time: 16:28 Bed 18 Private MD: Diagnosis: related conditions, unspecified, second trimester;Urinary tract infection, site not specified Presentation: 04/02 16:37 Chief complaint: Patient states: Lower abd cramping for 1 day. Approximately 17 weeks ll1 with twins. + spotting, with blood noted in urine this morning. States she had a UTI last week. Started getting a yeast infection so she stopped the antibiotics early. Has not treated the yeast infection yet, still feels like she has a UTI. G2, P0. Coronavirus screen: Client denies travel out of the [place] in the last 14 days. At this time, the client does not indicate any symptoms associated with coronavirus-19. Ebola Screen: Patient denies travel to an Ebola-affected area in the 21 days before illness onset. Initial Sepsis Screen: Does the patient meet any 2 criteria? No. Patient's initial sepsis screen is negative. Does the patient have a suspected source of infection? Yes: Dysuria/Frequency/Urgency/UTI. Risk Assessment: Do you want to hurt yourself or someone else? Patient reports no desire to harm self or others. Onset of symptoms was April 02, 2020. 16:37 [facility] 16[facility]37 Acuity: ALBERT 3 ll1 PHP PROGRAMMER: 18:23 1, Full Term 0, Premature 0, 0, Living 0 josie Historical: - Allergies: 16:36 No Known Allergies; ll1 - PMHx: 16:36 None; ll1 - PSHx: 16:36 Tonsillectomy; D \T\ C; ll1 - Immunization history:: Flu vaccine is not up to date. - Social history:: Smoking status: Patient denies any tobacco usage or history of. - Family history:: not pertinent. Screenin:27 Abuse screen: Denies threats or abuse. Nutritional screening: No deficits noted. vg1 Tuberculosis screening: No symptoms or risk factors identified. Fall Risk None identified. Assessment: 17:23 General: Appears in no apparent distress. uncomfortable, Behavior is calm, cooperative. vg1 Pain: Complains of pain in lower ABD and lower back Pain currently is 7 out of 10 on a pain scale. Neuro: Level of Consciousness is awake, alert, obeys commands, Oriented to person, place, time, situation. Cardiovascular: Patient's skin is warm and dry. Respiratory: Airway is patent Respiratory effort is even, unlabored. GI: Bowel sounds present X 4 quads. : Reports vaginal bleeding that is spotty, has urinary odor and currently has a UTI and states has a yeast infection. Derm: Skin is intact, is healthy with good turgor. Musculoskeletal: Circulation, motion, and sensation intact. 18:50 Reassessment: Patient appears in no apparent distress at this time. Patient and/or vg1 family updated on plan of care and expected duration. Pain level reassessed. Patient is alert, oriented x 3, equal unlabored respirations, skin warm/dry/pink. Rates pain 4/10 Patient states feeling better. Vital Signs: 16:37 BP 109 / 59; Pulse 87; Resp 17; Temp 99.0; Pulse Ox 98% on R/A; Weight 74.84 kg; Height ll1 5 ft. 7 in. (170.18 cm); Pain 7/10; 17:26 BP 97 / 59; Pulse 72; Resp 16; Pulse Ox 100% on R/A; vg1 18:00 BP 100 / 64; Pulse 94; Resp 16; Pulse Ox 100% on R/A; vg1 16:37 Body Mass Index 25.84 (74.84 kg, 170.18 cm) ll1 ED Course: 16:28 Patient arrived in ED. as 16:40 Triage completed. ll1 16:40 Arm band placed on. ll1 16:45 Nehal Quintanilla, JOSE is Primary Nurse. vg1 16:45 Ovidio Louie MD is Attending Physician. josie 17:25 Initial lab(s) drawn, by ct, sent to lab. Inserted saline lock: 22 gauge in right hand, vg1 using aseptic technique. Blood collected. 17:27 Patient has correct armband on for positive identification. Bed in low position. Call vg1 light in reach. Side rails up X 1. 17:57 OB Limited In Process Unspecified. EDMS 19:07 Devaughn Huitron MD is Referral Physician. josie 19:14 No provider procedures requiring assistance completed. IV discontinued, intact, vg1 bleeding controlled, No redness/swelling at site. Pressure dressing applied. Administered Medications: 17:22 Drug: NS 0.9% 1000 ml Route: IV; Rate: 1 bolus; Site: right hand; vg1 19:15 Follow up: IV Status: Completed infusion; IV Intake: 1000ml vg1 17:23 Drug: Rocephin 1 grams Route: IV; Rate: per protocol; Site: right hand; vg1 19:15 Follow up: Response: No adverse reaction; IV Status: Completed infusion vg1 Intake: 19:15 IV: 1000ml; Total: 1000ml. vg1 Outcome: 19:07 Discharge ordered by . josie 19:14 Discharged to home ambulatory. vg1 19:14 Condition: stable 19:14 Discharge instructions given to patient, Instructed on discharge instructions, follow up and referral plans. medication usage, Demonstrated understanding of instructions, follow-up care, medications, Prescriptions given X 2. 19:15 Patient left the ED. vg1 Signatures: Dispatcher [employer] EDMS Ovidio Louie MD MD cha Martinez, Amelia as Garcia, Victoria, RN RN 1 Orlando Butler RN RN ll1 Corrections: (The following items were deleted from the chart) 16:49 16:37 Chief complaint: Patient states: Lower abd cramping for 1 days. approximately 17 ll1 weeks with twins. + spotting with blood noted in uinre this morning. States she had a UTI last week. Started getting a yeast infection so she stopped the antibiotics early. Has not treated the yeast infection yet, still feels like she has a UTI. ll1
--- NOTE | 2020-04-02 19:08 | EDPHYS ---
Physician Documentation [facility] Name: Gloria Stratton Age: 19 yrs Sex: Female : 2000 Arrival Date: 04/02/2020 Time: 16:28 Bed 18 Private MD: ED Physician Ovidio Louie HPI: 04/02 18:23 This 19 yrs old Female presents to ER via Ambulatory with complaints of josie Pelvic Pain - 17 wks preg-twins, Abdominal Cramping. 18:23 The patient presents to the emergency department with cramping, no vag bleeding, no josie contractions. The estimated gestational age is 17 weeks. course: care: private OB physician. Previous pregnancies: the patient has never been . Associated signs and symptoms: The patient has no apparent associated signs or symptoms. The patient has not experienced similar symptoms in the past. 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 - Social history:: Smoking status: Patient denies any tobacco usage or history of. - Family history:: not pertinent. ROS: 18:23 Constitutional: Negative for fever, chills, and weight loss, Eyes: Negative for injury, josie pain, redness, and discharge, ENT: Negative for injury, pain, and discharge, Neck: Negative for injury, pain, and swelling, Cardiovascular: Negative for chest pain, palpitations, and edema, Respiratory: Negative for shortness of breath, cough, wheezing, and pleuritic chest pain, Back: Negative for injury and pain, : Negative for injury, bleeding, discharge, and swelling, MS/Extremity: Negative for injury and deformity, Skin: Negative for injury, rash, and discoloration, Neuro: Negative for headache, weakness, numbness, tingling, and seizure. 18:23 Abdomen/GI: Positive for abdominal cramps, abdominal distension. Exam: 18:23 Constitutional: This is a well developed, well nourished patient who is awake, alert, josie and in no acute distress. Head/Face: Normocephalic, atraumatic. Eyes: Pupils equal round and reactive to light, extra-ocular motions intact. Lids and lashes normal. Conjunctiva and sclera are non-icteric and not injected. Cornea within normal limits. Periorbital areas with no swelling, redness, or edema. ENT: Nares patent. No nasal discharge, no septal abnormalities noted. Tympanic membranes are normal and external auditory canals are clear. Oropharynx with no redness, swelling, or masses, exudates, or evidence of obstruction, uvula midline. Mucous membranes moist. Neck: Trachea midline, no thyromegaly or masses palpated, and no cervical lymphadenopathy. Supple, full range of motion without nuchal rigidity, or vertebral point tenderness. No Meningismus. Chest/axilla: Normal chest wall appearance and motion. Nontender with no deformity. No lesions are appreciated. Cardiovascular: Regular rate and rhythm with a normal S1 and S2. No gallops, murmurs, or rubs. Normal PMI, no JVD. No pulse deficits. Respiratory: Lungs have equal breath sounds bilaterally, clear to auscultation and percussion. No rales, rhonchi or wheezes noted. No increased work of breathing, no retractions or nasal flaring. Abdomen/GI: Soft, non-tender, with normal bowel sounds. No distension or tympany. No guarding or rebound. No evidence of tenderness throughout. Back: No spinal tenderness. No costovertebral tenderness. Full range of motion. Female : Normal external genitalia. Skin: Warm, dry with normal turgor. Normal color with no rashes, no lesions, and no evidence of cellulitis. MS/ Extremity: Pulses equal, no cyanosis. Neurovascular intact. Full, normal range of motion. Neuro: Awake and alert, GCS 15, oriented to person, place, time, and situation. Cranial nerves II-XII grossly intact. Motor strength 5/5 in all extremities. Sensory grossly intact. Cerebellar exam normal. Normal gait. Psych: Awake, alert, with orientation to person, place and time. Behavior, mood, and affect are within normal limits. Vital Signs: 16:37 BP 109 / 59; Pulse 87; Resp 17; Temp 99.0; Pulse Ox 98% on R/A; Weight 74.84 kg; Height ll1 5 ft. 7 in. (170.18 cm); Pain 7/10; 17:26 BP 97 / 59; Pulse 72; Resp 16; Pulse Ox 100% on R/A; vg1 18:00 BP 100 / 64; Pulse 94; Resp 16; Pulse Ox 100% on R/A; vg1 16:37 Body Mass Index 25.84 (74.84 kg, 170.18 cm) ll1 MDM: 16:45 Patient medically screened. [facility] 18:28 Differential diagnosis: threatened Ab. Data reviewed: vital signs, nurses notes, lab [facility] test result(s), radiologic studies, ultrasound. 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 Counseling: I had a detailed discussion with the patient and/or guardian regarding: the historical points, exam findings, and any diagnostic results supporting the discharge/admit diagnosis, lab results, radiology results, the need for outpatient follow up, for definitive care, an OB/Gyne specialist. 04/02 16:48 Order name: Quantitative Hcg [facility] 04/02 16:48 Order name: Abo/rh Typing [facility] 04/02 16:48 Order name: Basic Metabolic Panel; Complete Time: 18:18 [facility] 04/02 16:48 Order name: CBC with Diff; Complete Time: 18:18 [facility] 04/02 16:48 Order name: Urine Culture [facility] 04/02 16:49 Order name: HCG, Quantitative; Complete Time: 18:18 [facility] 04/02 16:48 Order name: Urine Test (obtain specimen); Complete Time: 17:09 [facility] 04/02 16:49 Order name: ABO/RH typing; Complete Time: 19:07 [facility] 04/02 17:22 Order name: Urine Dipstick--Ancillary (enter results); Complete Time: 18:18 04/02 17:22 Order name: Urine --Ancillary (enter results); Complete Time: 18:18 04/02 17:29 Order name: OB Limited; Complete Time: 18:18 [facility] 04/02 16:48 Order name: IV Saline Lock; Complete Time: 17:23 [facility] 04/02 16:48 Order name: Labs collected and sent; Complete Time: 17:23 [facility] 04/02 16:48 Order name: NPO; Complete Time: 16:58 [facility] 04/02 16:48 Order name: Urine Dipstick-Ancillary (obtain specimen); Complete Time: 17:09 [facility] Administered Medications: 17:22 Drug: NS 0.9% 1000 ml Route: IV; Rate: 1 bolus; Site: right hand; vg1 19:15 Follow up: IV Status: Completed infusion; IV Intake: 1000ml vg1 17:23 Drug: Rocephin 1 grams Route: IV; Rate: per protocol; Site: right hand; vg1 19:15 Follow up: Response: No adverse reaction; IV Status: Completed infusion vg1 Disposition: 04/02/20 19:07 Discharged to Home. Impression: related conditions, unspecified, second trimester, Urinary tract infection, site not specified. - Condition is Stable. - Discharge Instructions: Urinary Tract Infection, Adult, Urinary Tract Infection, Adult, [id number], Abdominal Pain During , [id number], Pelvic Rest. - Prescriptions for Vitamin 27- 0.8 mg Oral Tablet - take 1 tablet by ORAL route once daily; 30 tablet. Macrobid 100 mg Oral Capsule - take 1 capsule by ORAL route every 12 hours for 7 days; 14 capsule. - Medication Reconciliation Form, Thank You Letter, Antibiotic Education, Prescription Opioid Use form. - Follow up: Private Physician; When: 2 - 3 days; Reason: Recheck today's complaints, Continuance of care, Re-evaluation by your physician. Follow up: Devaughn Huitron; When: 2 - 3 days; Reason: Recheck today's complaints, Re-evaluation by your physician. - Problem is new. - Symptoms have improved. 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 [facility] 19:15 19:07 04/02/2020 19:07 Discharged to Home. Impression: related conditions, vg1 unspecified, second trimester; Urinary tract infection, site not specified. Condition is Stable. Discharge Instructions: Urinary Tract Infection, Adult, Urinary Tract Infection, Adult, [id number], Abdominal Pain During , [id number], Pelvic Rest. Prescriptions for Vitamin 27-0.8 mg Oral Tablet - take 1 tablet by ORAL route once daily; 30 tablet, Macrobid 100 mg Oral Capsule - take 1 capsule by ORAL route every 12 hours for 7 days; 14 capsule. and Forms are Medication Reconciliation Form, Thank You Letter, Antibiotic Education, Prescription Opioid Use. Follow up: Private Physician; When: 2 - 3 days; Reason: Recheck today's complaints, Continuance of care, Re-evaluation by your physician. Follow up: Devaughn Huitron; When: 2 - 3 days; Reason: Recheck today's complaints, Re-evaluation by your physician. Problem is new. Symptoms have improved. josie
== END 2020-04-02 19:15 | disposition home or self-care (01) ==
LOC: ER 16:26
DX: O23.42 Unspecified infection of urinary tract in pregnancy, second trimester (principal); Z3A.17 17 weeks gestation of pregnancy
CPT/HCPCS: 96365; 87088; 85025; 87086; 80048; 36415; 86900; 81025; 86901; 84702; 81003; 76815; 99284; 96366; J0696; J7030